=== PATIENT | male | born 1955 | race Caucasian/White ===

== ENCOUNTER → 2023-06-23 13:00 | Outpatient (REF) | payer MEDICARE, OTHER, SELFPAY | LOC: HWRAD 13:00 | PROVIDERS: ATTENDING PHYSICIAN Student in an Organized Health Care Education/Training Program; FAMILY PHYSICIAN Family Medicine | DX: N18.31 Chronic kidney disease, stage 3a (principal) | CPT/HCPCS: 76770 ==

== ENCOUNTER → 2023-07-31 06:23 | Day surgery (SDC) | payer MEDICARE, OTHER, SELFPAY ==
[2023-07-31 09:46] LABS: Glucose - Point of Care 91 mg/dl (70-99)
== END ==
LOC: GI 06:23
PROVIDERS: ATTENDING PHYSICIAN Internal Medicine Gastroenterology
DX: Z12.11 Encounter for screening for malignant neoplasm of colon (principal); D12.3 Benign neoplasm of transverse colon; D12.7 Benign neoplasm of rectosigmoid junction; K63.5 Polyp of colon; K57.30 Diverticulosis of large intestine without perforation or abscess without bleeding; K64.8 Other hemorrhoids; K29.50 Unspecified chronic gastritis without bleeding; K44.9 Diaphragmatic hernia without obstruction or gangrene; D50.9 Iron deficiency anemia, unspecified; Z86.010 Personal history of colon polyps; Z79.01 Long term (current) use of anticoagulants; Z87.11 Personal history of peptic ulcer disease
CPT/HCPCS: 45385; 45380; 43239; 88305; 82962; 88342

== ENCOUNTER 2023-12-15 07:09 | Inpatient (IN) | payer MEDICARE, OTHER, SELFPAY ==
--- NOTE | 2023-11-10 10:39 | CM ---
Patient is scheduled for an elective L TKR on 12/15/23. Spoke with patient prior to surgery via telephone. Introduced role of Orthopedic Navigator. Patient reports that he lives with his in a multi story home. There is one step to enter and 15
steps to the second floor. He currently functions independently. He has no DME. He has had VN services through VN. PCP is Jesse Coles.
Discussed orthopedic program and post surgical plans. Reviewed anticipated length of stay and that goal is for him to return home at discharge. Also reviewed outpatient PT. Patient is in agreement with tentative plan and will go directly to
outpatient PT at [facility]. he will have support from his when he goes home.
Patient will complete online education.
Plan: Orthopedic Navigator will remain available to assist with the care of patient and will reassess discharge needs after surgery.
[2023-11-24 13:37] LABS: Hematocrit 37.1 % (39.0-52.0); Hemoglobin 11.7 g/dL (13.0-18.0); Mean Corp Hgb Conc. 31.5 g/dL (33.0-37.0); Mean Corpuscular Hgb 26.2 pg (27.0-31.0); Mean Platelet Volume 10.7 fL (7.4-10.4); Platelet Count 384 10^3/uL (130-400); Red Blood Cell Count 4.47 10^6/uL (4.70-6.10); White Blood Cell Count 9.7 10^3/uL (4.8-10.8)
[2023-11-24 13:51] LABS: ALT (SGPT) 15 U/L (0-50); AST (SGOT) 20 U/L (17-59); Albumin 3.7 g/dl (3.5-5.0); Alkaline Phosphatase 110 U/L (38-126); Blood Urea Nitrogen 28 mg/dl (9-20); Calcium 10.1 mg/dl (8.4-10.2); Carbon Dioxide 25 mmol/L (22-30); Chloride 101 mmol/L (98-107); Glucose 105 mg/dl (70-99); Sodium 133 mmol/L (135-145); Total Bilirubin 0.5 mg/dl (0.2-1.3); Total Protein 6.3 g/dl (6.3-8.2); eGFR 54.07
[2023-11-24 13:52] VITALS: BMI 41.7
[2023-11-24 14:12] LABS: Glycohemoglobin (HgbA1c) 5.6 % (4.0-5.6)
[2023-12-08 08:36] VITALS: BMI 41.7
[2023-12-15] VITALS (13 sets, daily range): BP systolic 112–151; BP diastolic 63–118; PULSE 90; O2SAT 97
[2023-12-15] MEDS: CELEBREX 200 MG PO (07:51)
[2023-12-15] MEDS: NORMOSOL-R 1000 IV (07:51)
[2023-12-15] MEDS: TYLENOL 650 MG PO ×5 (07:51→23:26)
--- NOTE | 2023-12-15 12:15 | W.PN.UPDATE ---
Update Note
Progress Note Update
O/A s/p L TKA Dr. Chua 12/15/23
Hx PE -05/2020-B/L large clot burden w/ RV strain: RV/LV ratio 2.0
DVT 05/2020-nonocclusive deep venous thrombosis in the right posterior tibial and popliteal veins, distal right superficial femoral vein, occlusive thrombosis in the right peroneal veins
--unprovoked but increase risk for hypercoagulability including morbid obesity, sedentary state, ADELA (suspected), restrictive/obstructive lung disease, pulmonary carcinoid-now in setting of orthopedic surgery
--hematology recommendations:-Lovenox 40mg POD#1--thru 48/72h post-op--then resume therapeutic home dosing of Eliquis 5mg bid
--SCD device at all times when sitting /sleeping-will advise purchase for home use
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
Mixed restrictive and obstructive lung disease
--moderately-severely diminished lung capacity secondary to above--FEV 1: post bronchodilation 1.5L 57% 07/2023
--incentive spirometry
--IV Decadron
--standing order nebs
--minimize opioids
--monitor O2 sats
Congenital solitary kidney
CKD III -existing kidney secondary to NAMAN due to increased NSAID use in setting of metabolic acidosis and GIB
--NO NSAIDS/LUNDBERG II inhibitors
--adequate hydration-NSS IVF-mild hyponatremia
--CMP in am
Hx GIB secondary to NSAID use with underlying PUD
--PPI
Anemia-multifactorial due to MARILY and renal insufficiency-on oral iron at home
-IV Ferrous gluconate x2 this visit to maintain stores and prevent hemodynamic compromise due to blood loss anemia on anticoagulation
-monitor hgb
[2023-12-15] MEDS: NSS 1000 IV (12:44)
[2023-12-15] MEDS: ROXICODONE 5 MG PO (12:46)
--- NOTE | 2023-12-15 13:43 | PTCARENOTE ---
1312: Patient arrived to 2S. Full head to toe assessment completed. B/L LE neurovascular assessment completed. Scant amount of drainage on L knee aquacell. IVF running per order. Patient on RA with SpO2 greater than 92%. Call osborne within reach and
bed in lowest position. at bedside.
[2023-12-15] MEDS: FERRLECIT 110 MG IV (13:49)
[2023-12-15] MEDS: PROTONIX 40 MG PO (13:49)
[2023-12-15] MEDS: DECADRON 4 MG IV ×2 (15:04→21:35)
[2023-12-15] MEDS: ANCEF 5 IV (17:08)
[2023-12-15] MEDS: LIPITOR 20 MG PO (17:08)
[2023-12-15] MEDS: SODIUM BICARBONATE 650 MG PO (20:27)
[2023-12-15] MEDS: SENOKOT 17.2 MG PO (20:27)
[2023-12-15] MEDS: BACTROBAN 2% OINTMENT 1 APPLIC NASAL (20:27)
[2023-12-15] MEDS: COLACE 100 MG PO (20:28)
--- NOTE | 2023-12-15 20:30 | PTCARENOTE ---
Per telephone conversation with Zita Angel, final bag of IVF stopped at 2029 with 500 mL left.
[2023-12-15] MEDS: NEURONTIN 300 MG PO (21:36)
[2023-12-16] MEDS: ANCEF 5 IV (02:06)
[2023-12-16 03:49] VITALS: BP 136/80
[2023-12-16] MEDS: TYLENOL 650 MG PO ×3 (04:14→11:35)
[2023-12-16 06:42] LABS: ALT (SGPT) 13 U/L (0-50); AST (SGOT) 22 U/L (17-59); Albumin 3.4 g/dl (3.5-5.0); Alkaline Phosphatase 94 U/L (38-126); Blood Urea Nitrogen 29 mg/dl (9-20); Calcium 10.2 mg/dl (8.4-10.2); Carbon Dioxide 23 mmol/L (22-30); Chloride 102 mmol/L (98-107); Estimated Creatinine Clearance 64 ml/min; Glucose 141 mg/dl (70-99); Potassium 5.4 mmol/L (3.5-5.1); Sodium 137 mmol/L (135-145); Total Bilirubin 0.4 mg/dl (0.2-1.3); Total Protein 5.8 g/dl (6.3-8.2); eGFR > 60.00
[2023-12-16 07:00] VITALS: BP 143/76
[2023-12-16] MEDS: PROTONIX 40 MG PO (08:25)
[2023-12-16] MEDS: ZYLOPRIM 100 MG PO (08:25)
[2023-12-16] MEDS: SENOKOT 17.2 MG PO (08:25)
[2023-12-16] MEDS: COLACE 100 MG PO (08:26)
[2023-12-16] MEDS: SODIUM BICARBONATE 650 MG PO (08:26)
[2023-12-16] MEDS: BACTROBAN 2% OINTMENT 1 APPLIC NASAL (08:27)
[2023-12-16] MEDS: DECADRON 4 MG IV (08:27)
[2023-12-16] MEDS: FERRLECIT 110 MG IV (09:16)
[2023-12-16 10:10] VITALS: BP 144/73; PULSE 85
--- NOTE | 2023-12-16 10:12 | CM ---
Reviewed the chart notes and spoke with the patient. Patient ambulating in hallway with PT. VN order received. Patient will be doing outpatient therapy, therefore does not qualify of home bound services as VN. Patient understands and is
agreeable. Patient's spouse will provide transportation home and to PT. CM continues to be available to patient/family and is monitoring medical plan for needs at discharge.
Plan: Discharge to home when medically stable.
[2023-12-16 11:00] VITALS: BP 138/78
--- NOTE | 2023-12-16 11:12 | W.PN.ORTHO ---
Today's Communication / Plan
-
d/c
Assessment
.
Distal Motor Intact: Yes
Dressing:
Clean, dry and intact.
Assessment:
Hx PE -05/2020-B/L large clot burden w/ RV strain: RV/LV ratio 2.0
DVT 05/2020-nonocclusive deep venous thrombosis in the right posterior tibial and popliteal veins, distal right superficial femoral vein, occlusive thrombosis in the right peroneal veins
--unprovoked but increase risk for hypercoagulability including morbid obesity, sedentary state, ADELA (suspected), restrictive/obstructive lung disease, pulmonary carcinoid-now in setting of orthopedic surgery
--hematology recommendations:-Lovenox 40mg POD#1--thru 48/72h post-op--then resume therapeutic home dosing of Eliquis 5mg bid--Lovenox teaching inpatient
--SCD device at all times when sitting /sleeping-will advise purchase for home use
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
Mixed restrictive and obstructive lung disease
--moderately-severely diminished lung capacity secondary to above--FEV 1: post bronchodilation 1.5L 57% 07/2023
--incentive spirometry
--IV Decadron
--standing order nebs
--minimize opioids
--O2 sats stable
Congenital solitary kidney
CKD III -existing kidney secondary to NAMAN due to increased NSAID use in setting of metabolic acidosis and GIB
--NO NSAIDS/LUNDBERG II inhibitors
--adequate hydration-NSS IVF-mild hyponatremia
--CMP stable and improved from baseline
Hx GIB secondary to NSAID use with underlying PUD
--PPI
Anemia-multifactorial due to MARILY and renal insufficiency-on oral iron at home
-IV Ferrous gluconate x2 this visit to maintain stores and prevent hemodynamic compromise due to blood loss anemia on anticoagulation
-hgb and BP stable
Plan
.
Surgery / Date: O/A s/p L TKA Dr. Chua 12/15/23
DVT Prophylaxis: Lovenox and Other (Eliquis)
Activity:
Out of bed.
PT/OT
Discharge Plan: Home w/ Outpatient PT
Subjective
.
.:
Patient resting comfortably.
Vital Signs and Labs
.
Vital Signs and Labs:
Lab Results
12/16/23 05:05
12/16/23 05:05
Temp Pulse Resp BP Pulse Ox
97.8 F 89 16 138/78 99
12/16/23 11:00 12/16/23 11:00 12/16/23 11:00 12/16/23 11:00 12/16/23 11:00
Non-invasive Hgb result: 11.2
Physical Exam
-
HEENT: No pallor, cyanosis, or jaundice. Throat clear.
NECK: Supple. No JVD.
RESPIRATORY: Lungs clear to auscultation.
CVS: S1, S2 normal. RRR.� No murmur, rub or gallop.
ABDOMEN: Soft, non-tender. No distension. BS+/normal.
EXTREMITIES: strength equal, no calf pain with palpation
COMMAND AND CONTROL SPECIALIST: AOx3. No focal deficits. char filter operator grossly intact
--- NOTE | 2023-12-16 12:12 | W.DS.TRANS ---
DC Summary - Admission Nurse
-
Discharge Instructions:
Sleep Apnea Risk High
Discharge Diagnosis/Procedures L TKA Dr. Chua 12/15/23
Diet As tolerated
Activity With Walker
Additional Activity Frequent ambulation-venous compression device -
elevate legs
Driving Restrictions No driving
Bathing Restrictions OK to Shower
Others Tests incentive spirometry qid
Other Services PT
Instructions:
Stand-Alone Forms: Total Hip/Knee Replacement D/C
Changes to Home Medications: Yes
Discharge Medications:
DC Medications w/original date entered in [employer]
allopurinol 100 mg tablet 100 mg PO DAILY Gout 06/28/19
atorvastatin 20 mg tablet 20 mg PO DAILY Gastrointestinal issue 06/28/19
lisinopril 20 mg tablet 40 mg PO DAILY Blood pressure 05/24/20
pantoprazole 40 mg tablet,delayed release 40 mg PO DAILY Gastrointestinal issue 05/24/20
polyvinyl alcohol-povidone (PF) 1.4 %-0.6 % eye drops in a dropperette (Refresh Classic (PF)) 1 - 2 drops BOTH EYES DAILYPRN PRN dry eye 05/24/20
ferrous sulfate 325 mg (65 mg iron) tablet 65 mg PO .QOD Supplement 12/08/23
mupirocin 2 % topical ointment 1 applic topical BID Infection 12/08/23
sodium bicarbonate 650 mg tablet 650 mg PO BID 12/08/23
tirzepatide 2.5 mg/0.5 mL subcutaneous pen injector (Mounjaro) 2.5 mg SC JOE 12/08/23
dexamethasone 4 mg tablet 4 mg PO BID post op 12/12/23
ondansetron HCl 4 mg tablet 4 mg PO Q6H PRN post op nausea 12/12/23
Saccharomyces boulardii 250 mg capsule (Florastor) 250 mg PO BID #1 cap 12/16/23
acetaminophen 500 mg tablet 1,000 mg (2 x 500 mg) PO QID #0 tabs 12/16/23
apixaban 5 mg tablet (Eliquis) 5 mg PO BID Blood Clot Prevention/Tx 12/16/23
cefadroxil 500 mg capsule 500 mg PO BID INFECTIN PREVENTION #0 caps 12/16/23
docusate sodium 100 mg capsule (Colace) 100 mg PO BID stool softner #1 cap 12/16/23
enoxaparin 40 mg/0.4 mL subcutaneous syringe (Lovenox) 40 mg (0.4 mL) SC HS@1800 DVT PROPHYLAXIS #1 mL 12/16/23
magnesium hydroxide 400 mg/5 mL oral suspension (Milk of Magnesia) 30 ml PO HS PRN Constipation #1 mL 12/16/23
oxycodone 5 mg tablet 5 mg PO Q6H PRN 1 tab moderate pain, 2 tabs severe pain #30 tabs 12/16/23
sennosides 8.6 mg tablet (Senokot) 17.2 mg (2 x 8.6 mg) PO BID laxative #2 tabs 12/16/23
Home Medication Changes
dexamethasone 4 mg tablet 4 mg PO BID post op 12/12/23�
ondansetron HCl 4 mg tablet 4 mg PO Q6H PRN post op nausea 12/12/23�
Saccharomyces boulardii 250 mg capsule (Florastor) 250 mg PO BID #1 cap 12/16/23�
acetaminophen 500 mg tablet 1,000 mg (2 x 500 mg) PO QID #0 tabs 12/16/23�
apixaban 5 mg tablet (Eliquis) 5 mg PO BID Blood Clot Prevention/Tx 12/16/23�
cefadroxil 500 mg capsule 500 mg PO BID INFECTIN PREVENTION #0 caps 12/16/23�
docusate sodium 100 mg capsule (Colace) 100 mg PO BID stool softner #1 cap 12/16/23�
enoxaparin 40 mg/0.4 mL subcutaneous syringe (Lovenox) 40 mg (0.4 mL) SC HS@1800 DVT PROPHYLAXIS #1 mL 12/16/23�
magnesium hydroxide 400 mg/5 mL oral suspension (Milk of Magnesia) 30 ml PO HS PRN Constipation #1 mL 12/16/23�
oxycodone 5 mg tablet 5 mg PO Q6H PRN 1 tab moderate pain, 2 tabs severe pain #30 tabs 12/16/23�
sennosides 8.6 mg tablet (Senokot) 17.2 mg (2 x 8.6 mg) PO BID laxative #2 tabs 12/16/23�
Pending Results: Yes
Additional Pending Results:
sleep study
--- NOTE | 2023-12-16 12:18 | SLEEP.APNEA ---
Sleep Apnea Order
-
Patient screened as High Risk for Sleep Apnea on Stop Bang Questionnaire. Patient referred to [facility] for Pre-Study.

Name: PATTIE HARDING
: 1955
Home Phone: Use [email or web address] instead
Cell Phone: [f_Reg Other Phone]
Work Phone:
Address: [address] [place] [address]
City: [place]
State: [place]
Zip: [f_[facility] Zip]
Family Physician: Jesse Coles
Height 5 ft 4 in
Actual Weight 110.2 kg
Body Mass Index (BMI) 41.7
Ordering Provider: Zita Angel
[2023-12-16 12:32] VITALS: BP 138/78; PULSE 83
== END 2023-12-16 13:03 | disposition home or self-care (01) | DRG 470 ==
LOC: 2 SOUTH 07:09
PROVIDERS: Physician Assistant Medical; ADMITTING PHYSICIAN Specialist; FAMILY PHYSICIAN Family Medicine
PROC: 0SRD0J9 Replacement of Left Knee Joint with Synthetic Substitute, Cemented, Open Approach (ICD-10-PCS; 2023-12-15)
DX: M17.12 Unilateral primary osteoarthritis, left knee (principal); N17.9 Acute kidney failure, unspecified; Q60.0 Renal agenesis, unilateral; E87.20 Acidosis, unspecified; E87.1 Hypo-osmolality and hyponatremia; Z68.41 Body mass index [BMI] 40.0-44.9, adult; D63.1 Anemia in chronic kidney disease; E66.01 Morbid (severe) obesity due to excess calories; I12.9 Hypertensive chronic kidney disease with stage 1 through stage 4 chronic kidney disease, or unspecified chronic kidney disease; N18.30 Chronic kidney disease, stage 3 unspecified; J44.9 Chronic obstructive pulmonary disease, unspecified; D50.0 Iron deficiency anemia secondary to blood loss (chronic); M21.062 Valgus deformity, not elsewhere classified, left knee; T39.395A Adverse effect of other nonsteroidal anti-inflammatory drugs [NSAID], initial encounter; E78.5 Hyperlipidemia, unspecified; M10.9 Gout, unspecified; K44.9 Diaphragmatic hernia without obstruction or gangrene; K21.00 Gastro-esophageal reflux disease with esophagitis, without bleeding; M25.561 Pain in right knee; Z79.01 Long term (current) use of anticoagulants; Z79.85 Long-term (current) use of injectable non-insulin antidiabetic drugs; Z79.899 Other long term (current) drug therapy; Z86.711 Personal history of pulmonary embolism; Z86.718 Personal history of other venous thrombosis and embolism; Z87.11 Personal history of peptic ulcer disease; Z85.110 Personal history of malignant carcinoid tumor of bronchus and lung; Z90.2 Acquired absence of lung [part of]; Z87.19 Personal history of other diseases of the digestive system; Z90.49 Acquired absence of other specified parts of digestive tract
CPT/HCPCS: 36415; 73560; 80053; 83036; 85018; 85027; 86850; 86900; 86901; 87070; 93005; 97116; 97162; 97166; 97535; C1713; C1762; C1776; J2916

== ENCOUNTER → 2024-02-23 11:59 | Outpatient (REF) | payer MEDICARE, OTHER, SELFPAY ==
[2024-02-23 16:12] LABS: % Basophils 0.2 % (0-2); % Eosinophils 1.5 % (0-6); % Immature Granulocytes 0.6 % (0-0.5); % Lymphocytes 13.3 % (20.5-51.1); % Monocytes 14.3 % (1.7-9.3); % Neutrophils 70.1 % (42.2-75.2); Absolute Eosinophils 0.1 10^3/uL (0-0.7); Absolute Lymphocytes 0.7 10^3/uL (1.2-3.4); Absolute Monocytes 0.8 10^3/uL (0.1-0.6); Absolute Neutrophils 3.8 10^3/uL (1.4-6.5); Hematocrit 26.3 % (39.0-52.0); Mean Corp Hgb Conc. 30.4 g/dL (33.0-37.0); Mean Corpuscular Hgb 28.1 pg (27.0-31.0); Mean Corpuscular Volume 92.3 fL (80.0-94.0); Mean Platelet Volume 10.7 fL (7.4-10.4); Nucleated Red Blood Cells % 0 % (-); Platelet Count 330 10^3/uL (130-400); Red Blood Cell Count 2.85 10^6/uL (4.70-6.10); Red Cell Dist. Width 19.2 % (11.5-14.5); White Blood Cell Count 5.4 10^3/uL (4.8-10.8)
[2024-02-23 16:52] LABS: Ferritin 25.7 ng/ml (17.9-464.0)
== END ==
LOC: HWLAB 11:59
PROVIDERS: ATTENDING PHYSICIAN Physician Assistant Medical; REFERRING PHYSICIAN Internal Medicine Hematology & Oncology
DX: D50.9 Iron deficiency anemia, unspecified (principal)
CPT/HCPCS: 36415; 82728; 85025

== ENCOUNTER → 2024-02-26 11:20 | Outpatient (REF) | payer MEDICARE, OTHER, SELFPAY ==
[2024-02-26 08:29] LABS: % Basophils 0.6 % (0-2); % Eosinophils 5.5 % (0-6); % Immature Granulocytes 0.3 % (0-0.5); % Lymphocytes 24.8 % (20.5-51.1); % Monocytes 16.5 % (1.7-9.3); % Neutrophils 52.3 % (42.2-75.2); Absolute Eosinophils 0.2 10^3/uL (0-0.7); Absolute Lymphocytes 0.8 10^3/uL (1.2-3.4); Absolute Monocytes 0.5 10^3/uL (0.1-0.6); Absolute Neutrophils 1.7 10^3/uL (1.4-6.5); Hematocrit 26.2 % (39.0-52.0); Hemoglobin 7.8 g/dL (13.0-18.0); Mean Corp Hgb Conc. 29.8 g/dL (33.0-37.0); Mean Corpuscular Hgb 27.8 pg (27.0-31.0); Mean Corpuscular Volume 93.2 fL (80.0-94.0); Mean Platelet Volume 9.5 fL (7.4-10.4); Platelet Count 306 10^3/uL (130-400); Red Blood Cell Count 2.81 10^6/uL (4.70-6.10); Red Cell Dist. Width 18.9 % (11.5-14.5); White Blood Cell Count 3.3 10^3/uL (4.8-10.8)
== END ==
LOC: OIDL 11:20
PROVIDERS: ATTENDING PHYSICIAN Internal Medicine Hematology & Oncology
DX: I26.99 Other pulmonary embolism without acute cor pulmonale (principal); D50.9 Iron deficiency anemia, unspecified
CPT/HCPCS: 85025

== ENCOUNTER → 2024-03-03 12:30 | Outpatient (REF) | payer MEDICARE, OTHER, SELFPAY ==
[2024-03-03 16:02] LABS: % Basophils 0.3 % (0-2); % Eosinophils 1.8 % (0-6); % Immature Granulocytes 1.1 % (0-0.5); % Monocytes 10.2 % (1.7-9.3); % Neutrophils 72.6 % (42.2-75.2); Absolute Eosinophils 0.1 10^3/uL (0-0.7); Absolute Immature Granulocytes 0.1 10^3/uL (0-0.05); Absolute Lymphocytes 1.1 10^3/uL (1.2-3.4); Absolute Monocytes 0.8 10^3/uL (0.1-0.6); Absolute Neutrophils 5.7 10^3/uL (1.4-6.5); Hematocrit 30.7 % (39.0-52.0); Hemoglobin 9.1 g/dL (13.0-18.0); Mean Corp Hgb Conc. 29.6 g/dL (33.0-37.0); Mean Corpuscular Hgb 28.3 pg (27.0-31.0); Mean Corpuscular Volume 95.3 fL (80.0-94.0); Mean Platelet Volume 10.5 fL (7.4-10.4); Nucleated Red Blood Cells % 0 % (-); Platelet Count 332 10^3/uL (130-400); Red Blood Cell Count 3.22 10^6/uL (4.70-6.10); Red Cell Dist. Width 20.7 % (11.5-14.5); White Blood Cell Count 7.9 10^3/uL (4.8-10.8)
== END ==
LOC: HWLAB 12:30
PROVIDERS: ATTENDING PHYSICIAN Internal Medicine Hematology & Oncology; FAMILY PHYSICIAN Family Medicine
DX: I26.99 Other pulmonary embolism without acute cor pulmonale (principal); D50.9 Iron deficiency anemia, unspecified
CPT/HCPCS: 36415; 85025

== ENCOUNTER → 2024-03-29 14:58 | Outpatient (REF) | payer OTHER, MEDICARE, SELFPAY ==
[2024-03-29 16:06] LABS: % Basophils 0.2 % (0-2); % Eosinophils 1.7 % (0-6); % Immature Granulocytes 0.4 % (0-0.5); % Monocytes 9.2 % (1.7-9.3); % Neutrophils 73.5 % (42.2-75.2); Absolute Eosinophils 0.1 10^3/uL (0-0.7); Absolute Lymphocytes 1.2 10^3/uL (1.2-3.4); Absolute Monocytes 0.7 10^3/uL (0.1-0.6); Absolute Neutrophils 5.9 10^3/uL (1.4-6.5); Hematocrit 37.8 % (39.0-52.0); Hemoglobin 11.6 g/dL (13.0-18.0); Mean Corp Hgb Conc. 30.7 g/dL (33.0-37.0); Mean Corpuscular Hgb 28.2 pg (27.0-31.0); Mean Platelet Volume 10.8 fL (7.4-10.4); Nucleated Red Blood Cells % 0 % (-); Platelet Count 300 10^3/uL (130-400); Red Blood Cell Count 4.11 10^6/uL (4.70-6.10); Red Cell Dist. Width 15.7 % (11.5-14.5)
== END ==
LOC: REG 14:58
PROVIDERS: ATTENDING PHYSICIAN Specialist; FAMILY PHYSICIAN Family Medicine
DX: Z01.818 Encounter for other preprocedural examination (principal)
CPT/HCPCS: 36415; 85025

== ENCOUNTER 2024-04-12 08:36 | Inpatient (IN) | payer MEDICARE, OTHER, SELFPAY ==
[2024-02-05 13:36] VITALS: BMI 40.3
[2024-02-05 14:51] LABS: Hematocrit 28.4 % (39.0-52.0); Hemoglobin 8.6 g/dL (13.0-18.0); Mean Corp Hgb Conc. 30.3 g/dL (33.0-37.0); Mean Corpuscular Hgb 26.8 pg (27.0-31.0); Mean Corpuscular Volume 88.5 fL (80.0-94.0); Mean Platelet Volume 10.6 fL (7.4-10.4); Platelet Count 331 10^3/uL (130-400); Red Blood Cell Count 3.21 10^6/uL (4.70-6.10); Red Cell Dist. Width 19.4 % (11.5-14.5); White Blood Cell Count 6.9 10^3/uL (4.8-10.8)
[2024-02-05 15:06] LABS: ALT (SGPT) 14 U/L (0-50); AST (SGOT) 20 U/L (17-59); Albumin 3.5 g/dl (3.5-5.0); Alkaline Phosphatase 79 U/L (38-126); Blood Urea Nitrogen 35 mg/dl (9-20); Calcium 9.6 mg/dl (8.4-10.2); Carbon Dioxide 25 mmol/L (22-30); Chloride 105 mmol/L (98-107); Estimated Creatinine Clearance 66 ml/min; Glucose 94 mg/dl (70-99); Sodium 141 mmol/L (135-145); Total Bilirubin 0.3 mg/dl (0.2-1.3); Total Protein 5.8 g/dl (6.3-8.2); eGFR > 60.00
--- NOTE | 2024-02-24 08:46 | PTCARENOTE ---
Patients 02/22 b 8.0- Lona @ Dr. Chua notified
[2024-02-26 09:21] VITALS: BMI 40.3
[2024-04-06 08:53] VITALS: BMI 40.3
[2024-04-07 13:14] VITALS: BMI 37.5
[2024-04-07 13:50] LABS: Hemoglobin 12.4 g/dL (13.0-18.0); Mean Corp Hgb Conc. 30.2 g/dL (33.0-37.0); Mean Corpuscular Hgb 28.1 pg (27.0-31.0); Mean Platelet Volume 10.4 fL (7.4-10.4); Platelet Count 274 10^3/uL (130-400); Red Blood Cell Count 4.41 10^6/uL (4.70-6.10); Red Cell Dist. Width 15.1 % (11.5-14.5); White Blood Cell Count 7.3 10^3/uL (4.8-10.8)
[2024-04-07 14:14] LABS: Glycohemoglobin (HgbA1c) 4.7 % (4.0-5.6)
[2024-04-07 14:17] LABS: ALT (SGPT) 17 U/L (0-50); AST (SGOT) 21 U/L (17-59); Albumin 3.7 g/dl (3.5-5.0); Alkaline Phosphatase 93 U/L (38-126); Blood Urea Nitrogen 29 mg/dl (9-20); Calcium 9.8 mg/dl (8.4-10.2); Carbon Dioxide 26 mmol/L (22-30); Chloride 102 mmol/L (98-107); Estimated Creatinine Clearance 81 ml/min; Glucose 133 mg/dl (70-99); Potassium 4.7 mmol/L (3.5-5.1); Sodium 135 mmol/L (135-145); Total Bilirubin 0.3 mg/dl (0.2-1.3); Total Protein 6.1 g/dl (6.3-8.2); eGFR > 60.00
[2024-04-12] VITALS (14 sets, daily range): BP systolic 98–151; BP diastolic 60–81; PULSE 82; O2SAT 96; BMI 37.5
[2024-04-12 09:03] LABS: Glucose - Point of Care 93 mg/dl (70-99)
[2024-04-12] MEDS: NORMOSOL-R/PLASMALYTE-A 1000 IV ×2 (09:04→15:24)
[2024-04-12] MEDS: TYLENOL 650 MG PO ×4 (09:06→23:05)
[2024-04-12] MEDS: CELEBREX 200 MG PO (09:06)
[2024-04-12 11:15] LABS: Glucose - Point of Care 73 mg/dl (70-99)
--- NOTE | 2024-04-12 12:33 | W.PN.UPDATE ---
Update Note
Progress Note Update
O/A s/p R TKA Dr. Chua 04/12/24
hx L TKA 12/15/23 without complication
Hx PE -05/2020-B/L large clot burden w/ RV strain: RV/LV ratio 2.0
DVT 05/2020-nonocclusive deep venous thrombosis in the right posterior tibial and popliteal veins, distal right superficial femoral vein, occlusive thrombosis in the right peroneal veins
--unprovoked but increase risk for hypercoagulability including morbid obesity, sedentary state, ADELA (suspected), restrictive/obstructive lung disease, pulmonary carcinoid-now in setting of orthopedic surgery
--hematology recommendations:-Lovenox 40mg POD#1--thru 48/72h post-op--then resume therapeutic home dosing of Eliquis 5mg bid
--SCD device at all times when sitting /sleeping- for home use
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
Mixed restrictive and obstructive lung disease
--moderately-severely diminished lung capacity secondary to above--FEV 1: post bronchodilation 1.5L 57% 07/2023
--incentive spirometry
--IV Decadron
--standing order nebs
--minimize opioids
--monitor O2 sats
Congenital solitary kidney
CKD III -existing kidney secondary to NAMAN due to increased NSAID use in setting of metabolic acidosis and GIB
--NO NSAIDS/LUNDBERG II inhibitors
--adequate hydration
--CMP in am
Hx GIB secondary to NSAID use with underlying PUD
--PPI bid while inpatient
Anemia-multifactorial due to MARILY and renal insufficiency-on oral iron at home
-IV Ferrous gluconate x2 this visit to maintain stores and prevent hemodynamic compromise due to blood loss anemia on anticoagulation
-monitor hgb
--- NOTE | 2024-04-12 12:52 | W.DS.TRANS ---
DC Summary - Accounting File Clerk
-
Discharge Instructions:
Sleep Apnea Risk Intermediate
Discharge Diagnosis/Procedures R TKA Dr. Chua 04/12/24
Diet As tolerated
Activity With Walker
Additional Activity SCD venous compression device at all times when
sleeping or sitting for prolonged periods-
frequent ambulation
Driving Restrictions No driving
Bathing Restrictions OK to Shower
Instructions:
Stand-Alone Forms: Total Hip/Knee Replacement D/C
Changes to Home Medications: Yes
Discharge Medications:
DC Medications w/original date entered in [employer]
allopurinol 100 mg tablet 100 mg PO DAILY Gout 06/28/19
atorvastatin 20 mg tablet 20 mg PO DAILY 06/28/19
pantoprazole 40 mg tablet,delayed release 40 mg PO DAILY Gastrointestinal issue 05/24/20
ferrous sulfate 325 mg (65 mg iron) tablet 65 mg PO DAILY Supplement 12/08/23
tirzepatide 2.5 mg/0.5 mL subcutaneous pen injector (Mounjaro) 2.5 mg SC JOE 12/08/23
apixaban 5 mg tablet (Eliquis) 5 mg PO BID Blood Clot Prevention/Tx 12/16/23
ascorbic acid (vitamin C) 500 mg tablet (Vitamin C) 500 mg PO DAILY 02/24/24
lisinopril 40 mg tablet 40 mg PO DAILY 02/24/24
mupirocin 2 % topical ointment 1 applic topical BID 04/06/24
Saccharomyces boulardii 250 mg capsule (Florastor) 250 mg PO BID #1 cap 04/12/24
acetaminophen 500 mg tablet 1,000 mg (2 x 500 mg) PO QID #0 tabs 04/12/24
cefadroxil 500 mg capsule 500 mg PO BID infection prevention #14 caps 04/12/24
dexamethasone 4 mg tablet 4 mg PO BID inflammation #6 tabs 04/12/24
docusate sodium 100 mg capsule (Colace) 100 mg PO BID stool softner #1 cap 04/12/24
enoxaparin 40 mg/0.4 mL subcutaneous syringe (Lovenox) 40 mg (0.4 mL) SC HS Blood clot prevention/tx #1 mL 04/12/24
magnesium hydroxide 400 mg/5 mL oral suspension (Milk of Magnesia) 30 ml PO HS PRN Constipation #1 mL 04/12/24
ondansetron 4 mg disintegrating tablet 4 mg PO Q6H PRN n/v #20 tabs 04/12/24
oxycodone 5 mg tablet 5 mg PO Q6H PRN 1 tab moderate pain, 2 tabs severe pain #30 tabs 04/12/24
sennosides 8.6 mg tablet (Senokot) 17.2 mg (2 x 8.6 mg) PO BID laxative #2 tabs 04/12/24
Home Medication Changes
mupirocin 2 % topical ointment 1 applic topical BID 04/06/24
Saccharomyces boulardii 250 mg capsule (Florastor) 250 mg PO BID #1 cap 04/12/24
acetaminophen 500 mg tablet 1,000 mg (2 x 500 mg) PO QID #0 tabs 04/12/24
cefadroxil 500 mg capsule 500 mg PO BID infection prevention #14 caps 04/12/24
dexamethasone 4 mg tablet 4 mg PO BID inflammation #6 tabs 04/12/24
docusate sodium 100 mg capsule (Colace) 100 mg PO BID stool softner #1 cap 04/12/24
enoxaparin 40 mg/0.4 mL subcutaneous syringe (Lovenox) 40 mg (0.4 mL) SC HS Blood clot prevention/tx #1 mL 04/12/24
magnesium hydroxide 400 mg/5 mL oral suspension (Milk of Magnesia) 30 ml PO HS PRN Constipation #1 mL 04/12/24
ondansetron 4 mg disintegrating tablet 4 mg PO Q6H PRN n/v #20 tabs 04/12/24
oxycodone 5 mg tablet 5 mg PO Q6H PRN 1 tab moderate pain, 2 tabs severe pain #30 tabs 04/12/24
sennosides 8.6 mg tablet (Senokot) 17.2 mg (2 x 8.6 mg) PO BID laxative #2 tabs 04/12/24
Pending Results: No
[2024-04-12 13:14] LABS: Glucose - Point of Care 91 mg/dl (70-99)
[2024-04-12] MEDS: ROXICODONE 5 MG PO (13:39)
[2024-04-12] MEDS: XOPENEX 0.63 MG INHALANT SOLUTION INH ×2 (14:48→19:46)
[2024-04-12] MEDS: LIPITOR 20 MG PO (15:24)
[2024-04-12] MEDS: LOVENOX 40 MG SC (17:04)
[2024-04-12] MEDS: COLACE 100 MG PO (20:22)
[2024-04-12] MEDS: PROTONIX 40 MG PO (20:22)
[2024-04-12] MEDS: DECADRON 6 MG IV (20:23)
[2024-04-12] MEDS: ULTRAM 50 MG PO (20:23)
[2024-04-12] MEDS: SENOKOT 17.2 MG PO (20:23)
[2024-04-12] MEDS: BACTROBAN 2% OINTMENT 1 APPLIC NASAL (20:24)
[2024-04-12] MEDS: ANCEF 5 IV (20:24)
[2024-04-12] MEDS: NEURONTIN 300 MG PO (22:46)
[2024-04-13] MEDS: ANCEF 5 IV (03:04)
[2024-04-13] MEDS: TYLENOL 650 MG PO ×3 (03:04→11:53)
[2024-04-13] MEDS: ROXICODONE 5 MG PO (03:08)
[2024-04-13 03:24] VITALS: BP 125/62
[2024-04-13 07:06] LABS: ALT (SGPT) 20 U/L (0-50); AST (SGOT) 26 U/L (17-59); Albumin 3.3 g/dl (3.5-5.0); Alkaline Phosphatase 90 U/L (38-126); Blood Urea Nitrogen 29 mg/dl (9-20); Calcium 9.4 mg/dl (8.4-10.2); Carbon Dioxide 25 mmol/L (22-30); Chloride 102 mmol/L (98-107); Estimated Creatinine Clearance 81 ml/min; Glucose 133 mg/dl (70-99); Potassium 5.7 mmol/L (3.5-5.1); Sodium 132 mmol/L (135-145); Total Bilirubin 0.3 mg/dl (0.2-1.3); Total Protein 5.6 g/dl (6.3-8.2); eGFR > 60.00
[2024-04-13 07:15] VITALS: BP 132/68
[2024-04-13] MEDS: XOPENEX 0.63 MG INHALANT SOLUTION INH (07:15)
[2024-04-13] MEDS: BACTROBAN 2% OINTMENT 1 APPLIC NASAL (08:01)
[2024-04-13] MEDS: COLACE 100 MG PO (08:02)
[2024-04-13] MEDS: DECADRON 6 MG IV (08:02)
[2024-04-13] MEDS: SENOKOT 17.2 MG PO (08:05)
[2024-04-13] MEDS: PROTONIX 40 MG PO (08:05)
[2024-04-13] MEDS: ZYLOPRIM 100 MG PO (08:05)
[2024-04-13] MEDS: ULTRAM 50 MG PO (08:05)
[2024-04-13] MEDS: LIPITOR 20 MG PO (08:05)
[2024-04-13 09:00] VITALS: BP 136/64; PULSE 79; O2SAT 99
[2024-04-13 09:21] VITALS: BP 125/69; PULSE 80
--- NOTE | 2024-04-13 10:33 | CM ---
CM following re: discharge planning.
Reviewed pt's chart, met with pt.
Pt is a 68 year old male, admitted with primary dx of POD#1 s/p Semi constrained right total knee arthroplasty.
Pt reports he lives with spouse 2SH, 1 step to enter, has supportive son. Pt reports he ambulates mostly with a cane, has a walker, does not use it. Pt expressed his desire to return back home with resumptions of [facility] instead of [facility]
services. Pt stated he feels he will be discharged home today and his spouse will transport home. IMM reviewed, placed on chart, pt has a copy.
Please provide a script for outpatient therapy.
PCP: Jesse Coles
Pharmacy: [facility]
D/C plan: home with resumptions of [facility]. Spouse to transport.
--- NOTE | 2024-04-13 10:34 | W.PN.ORTHO ---
Today's Communication / Plan
-
d/c
Assessment
.
Distal Motor Intact: Yes
Dressing:
Clean, dry and intact.
Assessment:
O/A s/p R TKA Dr. Chua 04/12/24
hx L TKA 12/15/23 without complication
Hx PE -05/2020-B/L large clot burden w/ RV strain: RV/LV ratio 2.0
DVT 05/2020-nonocclusive deep venous thrombosis in the right posterior tibial and popliteal veins, distal right superficial femoral vein, occlusive thrombosis in the right peroneal veins
--unprovoked but increased risk for hypercoagulability including morbid obesity, sedentary state, ADELA (suspected), restrictive/obstructive lung disease, pulmonary carcinoid-now in setting of orthopedic surgery
--hematology recommendations:-Lovenox 40mg POD#1--thru 48/72h post-op--then resume therapeutic home dosing of Eliquis 5mg bid
--SCD device at all times when sitting /sleeping- for home use
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
Mixed restrictive and obstructive lung disease
--moderately-severely diminished lung capacity secondary to above--FEV 1: post bronchodilation 1.5L 57% 07/2023
--incentive spirometry
--IV Decadron
--standing order nebs
--minimize opioids
--O2 sats stable RA
Congenital solitary kidney
CKD III -existing kidney secondary to NAMAN due to increased NSAID use in setting of metabolic acidosis and GIB
--NO NSAIDS/LUNDBERG II inhibitors
--adequate hydration
--CMP stable-K+mildly elevated 5.7-+ Kayexalate
Remote Hx GIB secondary to NSAID use with underlying PUD-recent iron deficiency anemia evaluated with upper and lower scopes as well as capsule endoscopy per patient no source of bleeding identified
--PPI bid while inpatient
Anemia-multifactorial due to MARILY and renal insufficiency--has received IV iron pre-op with hgb recovered on PAT- IV iron x 2 doses inpatient and will continue oral iron at home-no hemodynamic compromise nor incisional bleeding this visit
Plan
.
Surgery / Date: O/A s/p R TKA Dr. Chua 04/12/24
DVT Prophylaxis: Lovenox (2 doses) and Other (Eliquis 5mg bid to begin in am POD#2 per heme)
Activity:
Out of bed.
PT/OT
Discharge Plan: Home w/ Outpatient PT
Subjective
.
.:
Patient resting comfortably.
Vital Signs and Labs
.
Vital Signs and Labs:
Lab Results
04/07/24 13:00
04/13/24 05:16
Temp Pulse Resp BP Pulse Ox
98.2 F 72 16 132/68 98
04/13/24 07:15 04/13/24 08:06 04/13/24 07:16 04/13/24 08:06 04/13/24 07:16
Non-invasive Hgb result: 11.6
Physical Exam
-
HEENT: No pallor, cyanosis, or jaundice. Throat clear.
NECK: Supple. No JVD.
RESPIRATORY: Lungs clear to auscultation.
CVS: S1, S2 normal. RRR.� No murmur, rub or gallop.
ABDOMEN: Soft, non-tender. No distension. BS+/normal.
EXTREMITIES: strength equal, no calf pain with palpation
GLASS BEVELER: AOx3. No focal deficits. mica layer grossly intact
[2024-04-13] MEDS: FERRLECIT 110 MG IV (10:49)
[2024-04-13 11:11] VITALS: BP 109/59
[2024-04-13] MEDS: KAYEXALATE SUSPENSION 15 GRAMS PO (11:44)
[2024-04-13] MEDS: ROXICODONE 10 MG PO (11:56)
== END 2024-04-13 14:51 | disposition home or self-care (01) | DRG 470 ==
LOC: 2 SOUTH 08:36
PROVIDERS: Physician Assistant Medical; ADMITTING PHYSICIAN Specialist; FAMILY PHYSICIAN Family Medicine
PROC: 0SRC0J9 Replacement of Right Knee Joint with Synthetic Substitute, Cemented, Open Approach (ICD-10-PCS; 2024-04-12)
DX: M17.11 Unilateral primary osteoarthritis, right knee (principal); Z68.41 Body mass index [BMI] 40.0-44.9, adult; D68.59 Other primary thrombophilia; Q60.0 Renal agenesis, unilateral; E66.01 Morbid (severe) obesity due to excess calories; Z96.652 Presence of left artificial knee joint; M10.9 Gout, unspecified; N18.30 Chronic kidney disease, stage 3 unspecified; I12.9 Hypertensive chronic kidney disease with stage 1 through stage 4 chronic kidney disease, or unspecified chronic kidney disease; E78.5 Hyperlipidemia, unspecified; K44.9 Diaphragmatic hernia without obstruction or gangrene; K27.9 Peptic ulcer, site unspecified, unspecified as acute or chronic, without hemorrhage or perforation; J44.9 Chronic obstructive pulmonary disease, unspecified; Z79.01 Long term (current) use of anticoagulants; Z79.85 Long-term (current) use of injectable non-insulin antidiabetic drugs; M21.00 Valgus deformity, not elsewhere classified, unspecified site; Z86.711 Personal history of pulmonary embolism; Z86.718 Personal history of other venous thrombosis and embolism; D50.9 Iron deficiency anemia, unspecified; Z87.11 Personal history of peptic ulcer disease; Z90.2 Acquired absence of lung [part of]; K21.9 Gastro-esophageal reflux disease without esophagitis
CPT/HCPCS: 36415; 73560; 80053; 82962; 83036; 85027; 86850; 86900; 86901; 87070; 94640; 97116; 97162; 97166; 97530; C1713; C1776; J2916

== ENCOUNTER → 2024-11-18 08:48 | Outpatient (REF) | payer MEDICARE, OTHER, SELFPAY | LOC: RAD 08:48 | PROVIDERS: ATTENDING PHYSICIAN Family Medicine | DX: I12.9 Hypertensive chronic kidney disease with stage 1 through stage 4 chronic kidney disease, or unspecified chronic kidney disease (principal); R73.03 Prediabetes; N18.31 Chronic kidney disease, stage 3a; M10.9 Gout, unspecified; K21.9 Gastro-esophageal reflux disease without esophagitis; E66.813 Obesity, class 3; Z96.651 Presence of right artificial knee joint; Z85.118 Personal history of other malignant neoplasm of bronchus and lung | CPT/HCPCS: 71046 ==